=== PATIENT | female | born 1950 | race Caucasian/White ===

== ENCOUNTER 2020-07-18 12:07 | Observation (INO) ==
[2020-07-18] MEDS ORDERED: Acetaminophen 325 MG TABLET PO PRN (14:00)
[2020-07-18] MEDS ORDERED: Ondansetron 4 MG/2 ML VIAL IVP PRN (14:00)
[2020-07-18] MEDS ORDERED: Mag Hydrox/Al Hydrox/Simeth 30 ML UDC PO PRN (14:00)
[2020-07-18] MEDS ORDERED: MOM Conc 10 ML UD.LIQ PO PRN (14:00)
[2020-07-18] MEDS ORDERED: Naloxone 0.4 MG/ML INJ IVP PRN (14:00)
[2020-07-18] MEDS: 0.9 % Sodium Chloride 1,000 ML IVC SCH (15:15)
[2020-07-18] MEDS: Carbidopa/Levodopa 25/100 TABLET PO SCH ×2 (15:15→21:21)
[2020-07-18] MEDS: Multivit/Ca/Min/Fe/FA 1 TAB TABLET PO SCH (17:22)
[2020-07-18] MEDS: Melatonin 3 MG TABLET PO SCH (21:21)
[2020-07-18] MEDS: Nystatin POWDER 30 GM BOTTLE TP SCH (21:21)
[2020-07-19] MEDS: 0.9 % Sodium Chloride 1,000 ML IVC SCH (00:24)
[2020-07-19 06:50] LABS: Basophils % 0.5 %; Eosinophils # 0.5 K/mcL (0.0-0.6); Eosinophils % 6.1 %; Hematocrit 24.2 % (35.3-44.9); Hemoglobin 7.4 g/dL (11.5-15.4); Lymphocytes # 1.1 K/mcL (0.6-4.6); Lymphocytes % 14.6 %; Mean Corpuscular HGB Conc 30.6 g/dL (31.6-35.5); Mean Corpuscular Hemoglobin 27.3 pg (28.0-33.3); Mean Corpuscular Volume 89.3 fL (83.0-100.0); Mean Platelet Volume 9.3 fL (9.4-12.4); Monocytes # 0.7 K/mcL (0.0-1.3); Monocytes % 9.1 %; Platelet Count 173 K/mcL (140-400); Red Blood Count 2.71 M/mcL (3.82-4.97); Red Cell Distribution Width 17.3 % (11.5-14.5); Segmented Neutrophils % 67.7 %; White Blood Count 7.4 K/mcL (4.3-11.1)
[2020-07-19 07:15] LABS: BUN/Creatinine Ratio 23 (6-26); Blood Urea Nitrogen 20 mg/dL (8-23); Calcium 8.4 mg/dL (8.6-10.3); Carbon Dioxide 23 mEq/L (23-29); Chloride 105 mEq/L (98-107); Glucose 77 mg/dL (70-105); Osmolality,Calculated 279 (280-300); Potassium 4.3 mEq/L (3.5-5.1); Sodium 134 mEq/L (136-145); eGFR For African Americans > 60 (> 60); eGFR For Non-African Americans > 60 (> 60)
[2020-07-19] MEDS ORDERED: Fluconazole 100 MG TABLET PO SCH (09:00)
[2020-07-19] MEDS: Aspirin 81 MG TAB.CHEW PO SCH (09:09)
[2020-07-19] MEDS: OLANZapine 5 MG TAB.RAPDIS PO SCH (09:10)
[2020-07-19] MEDS: Carbidopa/Levodopa 25/100 TABLET PO SCH ×3 (09:10→20:18)
[2020-07-19] MEDS: amLODIPine 5 MG TABLET PO SCH (09:10)
[2020-07-19] MEDS: cefTRIAXone 2,000 MG in Water for inj. (sterile) 20 ML IVP SCH (09:10)
[2020-07-19] MEDS: Nystatin POWDER 30 GM BOTTLE TP SCH ×2 (09:11→20:18)
[2020-07-19] MEDS: Fluconazole 100 MG TABLET PO SCH (09:18)
[2020-07-19] MEDS ORDERED: clonazePAM 0.5 MG TABLET PO PRN (11:07)
[2020-07-19] MEDS: rOPINIRole 1 MG TABLET PO SCH ×2 (16:35→20:18)
[2020-07-19] MEDS: Multivit/Ca/Min/Fe/FA 1 TAB TABLET PO SCH (16:35)
[2020-07-19] MEDS: Divalproex (24 HR) 250 MG TABLET PO SCH (20:18)
[2020-07-19] MEDS: Melatonin 3 MG TABLET PO SCH (20:18)
[2020-07-20 07:44] LABS: Basophils # 0.1 K/mcL (0.0-0.2); Basophils % 0.9 %; Eosinophils # 0.5 K/mcL (0.0-0.6); Eosinophils % 7.9 %; Hematocrit 26.8 % (35.3-44.9); Hemoglobin 8.6 g/dL (11.5-15.4); Immature Granulocytes % 5.5 % (0-4); Lymphocytes % 15.1 %; Mean Corpuscular HGB Conc 32.1 g/dL (31.6-35.5); Mean Corpuscular Hemoglobin 27.9 pg (28.0-33.3); Mean Platelet Volume 8.7 fL (9.4-12.4); Monocytes # 0.5 K/mcL (0.0-1.3); Monocytes % 7.5 %; Platelet Count 209 K/mcL (140-400); Red Blood Count 3.08 M/mcL (3.82-4.97); Red Cell Distribution Width 16.9 % (11.5-14.5); Segmented Neutrophils % 63.1 %; White Blood Count 6.4 K/mcL (4.3-11.1)
[2020-07-20 08:13] LABS: BUN/Creatinine Ratio 14 (6-26); Blood Urea Nitrogen 12 mg/dL (8-23); Calcium 8.8 mg/dL (8.6-10.3); Carbon Dioxide 24 mEq/L (23-29); Chloride 104 mEq/L (98-107); Glucose 97 mg/dL (70-105); Osmolality,Calculated 276 (280-300); Potassium 4.5 mEq/L (3.5-5.1); Sodium 133 mEq/L (136-145); eGFR For African Americans > 60 (> 60); eGFR For Non-African Americans > 60 (> 60)
[2020-07-20] MEDS: Divalproex (24 HR) 250 MG TABLET PO SCH ×2 (08:18→21:23)
[2020-07-20] MEDS: Fluconazole 100 MG TABLET PO SCH (08:18)
[2020-07-20] MEDS: Aspirin 81 MG TAB.CHEW PO SCH (08:18)
[2020-07-20] MEDS: OLANZapine 5 MG TAB.RAPDIS PO SCH (08:18)
[2020-07-20] MEDS: rOPINIRole 1 MG TABLET PO SCH ×3 (08:18→21:23)
[2020-07-20] MEDS: cefTRIAXone 2,000 MG in Water for inj. (sterile) 20 ML IVP SCH (08:18)
[2020-07-20] MEDS: amLODIPine 5 MG TABLET PO SCH (08:18)
[2020-07-20] MEDS: Carbidopa/Levodopa 25/100 TABLET PO SCH ×3 (08:18→21:23)
[2020-07-20] MEDS: Nystatin POWDER 30 GM BOTTLE TP SCH ×2 (08:20→21:24)
[2020-07-20 08:58] LABS: Platelet Estimate Normal (Normal)
[2020-07-20] MEDS: Multivit/Ca/Min/Fe/FA 1 TAB TABLET PO SCH (18:16)
[2020-07-20] MEDS: Cefdinir 300 MG CAPSULE PO SCH (21:23)
[2020-07-20] MEDS: Melatonin 3 MG TABLET PO SCH (21:24)
[2020-07-21 07:08] VITALS: BP 128/76
[2020-07-21 08:28] LABS: Hematocrit 27.7 % (35.3-44.9); Hemoglobin 8.7 g/dL (11.5-15.4); Mean Corpuscular HGB Conc 31.4 g/dL (31.6-35.5); Mean Corpuscular Hemoglobin 27.4 pg (28.0-33.3); Mean Corpuscular Volume 87.4 fL (83.0-100.0); Mean Platelet Volume 8.8 fL (9.4-12.4); Platelet Count 254 K/mcL (140-400); Red Blood Count 3.17 M/mcL (3.82-4.97); Red Cell Distribution Width 17.2 % (11.5-14.5); White Blood Count 6.8 K/mcL (4.3-11.1)
[2020-07-21 08:49] LABS: BUN/Creatinine Ratio 8 (6-26); Blood Urea Nitrogen 7 mg/dL (8-23); Carbon Dioxide 27 mEq/L (23-29); Chloride 104 mEq/L (98-107); Glucose 86 mg/dL (70-105); Osmolality,Calculated 275 (280-300); Potassium 4.1 mEq/L (3.5-5.1); Sodium 134 mEq/L (136-145); eGFR For African Americans > 60 (> 60); eGFR For Non-African Americans > 60 (> 60)
[2020-07-21 08:59] LABS: Calcium 8.7 mg/dL (8.6-10.3)
[2020-07-21 09:31] LABS: Eosinophils # 0.4 K/mcL (0.0-0.6); Lymphocytes # 0.5 K/mcL (0.6-4.6); Monocytes # 0.3 K/mcL (0.0-1.3); Neutrophils # 5.2 K/mcL (1.6-8.9); Platelet Estimate Normal (Normal)
[2020-07-21] MEDS: Fluconazole 100 MG TABLET PO SCH (09:39)
[2020-07-21] MEDS: Aspirin 81 MG TAB.CHEW PO SCH (09:39)
[2020-07-21] MEDS: amLODIPine 5 MG TABLET PO SCH (09:39)
[2020-07-21] MEDS: Divalproex (24 HR) 250 MG TABLET PO SCH (09:39)
[2020-07-21] MEDS: Cefdinir 300 MG CAPSULE PO SCH (09:40)
[2020-07-21] MEDS: Carbidopa/Levodopa 25/100 TABLET PO SCH (09:40)
[2020-07-21] MEDS: rOPINIRole 1 MG TABLET PO SCH ×2 (09:40→14:29)
[2020-07-21] MEDS: Nystatin POWDER 30 GM BOTTLE TP SCH (09:41)
[2020-07-21] MEDS: OLANZapine 5 MG TAB.RAPDIS PO SCH (09:41)
== END 2020-07-21 16:15 | disposition home health service (06) ==
LOC: INPPIK
PROVIDERS: ADMIT Family Medicine; ATTEND Family Medicine